=== PATIENT | male | born 1965 | race Caucasian/White ===

== ENCOUNTER 2017-06-16 10:29 | Emergency (ER) | payer BC, OTHER ==
[~2017-06-16] VITALS: Ht 172.7 cm; Wt 93.4 kg
[~2017-06-16 10:29] MED LIST: Aspirin PO; FOLIC ACID1 MG PO; PRILOSEC OTC20 MG PO
[2017-06-16] MEDS ORDERED: ASPIRIN 81 MG CHEW TAB PO ONE (10:45)
--- NOTE | 2017-06-16 11:30 | Diagnostic Imaging Report ---
EXAMINATION: CHEST 2 VIEWS 06/16/2017 10:43 AM COMPARISON: None INDICATION: Shortness of breath, congestion DISCUSSION: LINES: None. LUNGS: The lungs are well inflated and clear. No pneumonia or pulmonary edema. PLEURA: No pleural effusion or pneumothorax. HEART AND MEDIASTINUM: The cardiomediastinal silhouette is unremarkable. BONES AND SOFT TISSUES: No acute osseous lesion. The soft tissues are normal. IMPRESSION: No acute cardiopulmonary disease. Joey Blum MD Signed by: Dr. Joey Blum M.D. on 06/16/2017 11:26 AM
[2017-06-16 11:40] LABS: BILIRUBIN,URINE NEGATIVE (NEGATIVE); CLARITY,URINE CLEAR (CLEAR); COLOR,URINE YELLOW (YELLOW); KETONES,URINE NEGATIVE (NEGATIVE); LEUKOCYTE ESTERASE ,URINE NEGATIVE (NEGATIVE); NITRITE,URINE NEGATIVE (NEGATIVE); PROTEIN,URINE DIPSTICK NEGATIVE (NEGATIVE); URINE UROBILINOGEN 0.2 mg/dL (0.2 - 1)
[2017-06-16 11:58] LABS: EPITHELIAL CELLS,URINE RARE /LPF; RBC,URINE 0-5 /HPF (0-5); WBC,URINE (MAN) 0-5 /HPF (0-5)
[2017-06-16 12:08] LABS: BASOPHILS # (AUTO) 0.1 (0.0-0.1); BASOPHILS % 0.9 % (0.0-1.0); EOSINOPHILS % 0.7 % (0.0-6.0); HEMATOCRIT 41.8 % (38.2-49.6); HEMOGLOBIN 14.4 g/dL (14.0-18.0); LYMPHOCYTES # (AUTO) 0.9 (1.0-3.2); LYMPHOCYTES % 16.9 % (18.0-39.1); MEAN CORPUSCULAR HEMOGLOBIN 29.3 pg (28-32); MEAN CORPUSCULAR HGB CONC 34.4 g/dL (31-35); MEAN CORPUSCULAR VOLUME 85.1 fL (81-99); MONOCYTES # (AUTO) 0.6 (0.2-0.8); MONOCYTES % 10.2 % (4.4-11.3); NEUTROPHILS # (AUTO) 3.8 (2.1-6.9); NEUTROPHILS % 71.1 % (38.7-80.0); PLATELET COUNT 210 x10e3/uL (140-360); RED BLOOD COUNT 4.91 x10e6/uL (4.3-5.7); RED CELL DISTRIBUTION WIDTH 14.6 % (11.7-14.4)
[2017-06-16] MEDS ORDERED: SODIUM CHLORIDE 0.9% 1000ML 1,000 ML IV SCH (13:00)
[2017-06-16 13:29] LABS: ALANINE AMINOTRANSFERASE 15 IU/L (0-55); ALBUMIN 3.4 g/dL (3.5-5.0); ALBUMIN/GLOBULIN RATIO 1.6 (0.8-2.0); ALKALINE PHOSPHATASE 50 IU/L (40-150); AMYLASE 39 U/L (25-125); ANION GAP 12.6 mmol/L (8-16); BLOOD UREA NITROGEN 9 mg/dL (7-26); BUN/CREATININE RATIO 11 (6-25); CARBON DIOXIDE 18 mmol/L (22-29); CHLORIDE 112 mmol/L (98-107); CREATINE KINASE 110 IU/L (30-200); CREATININE, SERUM 0.84 mg/dL (0.72-1.25); EST GLOMERULAR FILTRATION RATE > 60 ML/MIN (60-); GLUCOSE 90 mg/dL (74-118); LIPASE 12 U/L (8-78); MAGNESIUM 1.7 MG/DL (1.3-2.1); POTASSIUM 3.6 mmol/L (3.5-5.1); SODIUM 139 mmol/L (136-145)
[2017-06-16 13:47] LABS: INR 1.22; PARTIAL THROMBOPLASTIN TIME 28.8 seconds (23.8-35.5); PROTHROMBIN TIME 14.5 seconds (11.9-14.5)
[2017-06-16] MEDS ORDERED: CALCIUM CHLORIDE 13.6 MEQ in SODIUM CHLORIDE 0.9% 100 ML 100 ML IV ONE (16:00)
== END 2017-06-16 18:36 | disposition home or self-care (01) ==
LOC: ER 10:29
DX: R06.09 Other forms of dyspnea (principal); E83.51 Hypocalcemia; F17.210 Nicotine dependence, cigarettes, uncomplicated
CPT/HCPCS: 36415; 71046; 80053; 81001; 82150; 82550; 82553; 83690; 83735; 83880; 84484; 85025; 85379; 85610; 85730; 87086; 87400; 93005; 99284; J7030

== ENCOUNTER → 2018-02-25 | Outpatient (CLI) | payer BC, OTHER ==
--- NOTE | 2018-02-25 13:35 | Diagnostic Imaging Report ---
Exam: Ultrasound extremity nonvascular History: Right inguinal pain. Lifting injury. Comparison: None Findings: Transverse and sagittal ultrasonographic imaging was obtained of the right inguinal region with rest and during all solid. Grayscale and color Doppler imaging was performed. Comparative imaging was obtained of the left inguinal region. No abnormal fluid collections are seen. No hernia is seen. Impression: No abnormal fluid collections are seen. No hernia is seen. Signed by: Dr. Vj Sosa M.D. on 02/25/2018 1:31 PM
== END ==
LOC: US 11:18
PROVIDERS: ATTEND Family Medicine
DX: R10.31 Right lower quadrant pain (principal)
CPT/HCPCS: 76882

== ENCOUNTER → 2018-07-04 | Day surgery (SDC) | payer BC ==
[2018-07-01 16:10] LABS: BASOPHILS % 0.5 % (0.0-1.0); EOSINOPHILS # (AUTO) 0.2 (0.0-0.4); EOSINOPHILS % 3.4 % (0.0-6.0); HEMATOCRIT 46.7 % (38.2-49.6); HEMOGLOBIN 15.6 g/dL (14.0-18.0); LYMPHOCYTES # (AUTO) 1.7 (1.0-3.2); LYMPHOCYTES % 28.5 % (18.0-39.1); MEAN CORPUSCULAR HEMOGLOBIN 30.2 pg (28-32); MEAN CORPUSCULAR HGB CONC 33.4 g/dL (31-35); MEAN CORPUSCULAR VOLUME 90.5 fL (81-99); MONOCYTES # (AUTO) 0.6 (0.2-0.8); MONOCYTES % 10.3 % (4.4-11.3); NEUTROPHILS # (AUTO) 3.4 (2.1-6.9); PLATELET COUNT 279 x10e3/uL (140-360); RED BLOOD COUNT 5.16 x10e6/uL (4.3-5.7); RED CELL DISTRIBUTION WIDTH 13.7 % (11.7-14.4)
[2018-07-01 16:19] LABS: INR 0.99; PROTHROMBIN TIME 13.6 seconds (11.9-14.5)
[2018-07-01 16:20] LABS: PARTIAL THROMBOPLASTIN TIME 32.4 seconds (23.8-35.5)
[2018-07-01 16:26] LABS: ALANINE AMINOTRANSFERASE 16 IU/L (0-55); ALBUMIN/GLOBULIN RATIO 1.5 (0.8-2.0); ALKALINE PHOSPHATASE 62 IU/L (40-150); ANION GAP 11.8 mmol/L (8-16); BLOOD UREA NITROGEN 18 mg/dL (7-26); BUN/CREATININE RATIO 20 (6-25); CALCIUM 8.6 mg/dL (8.4-10.2); CARBON DIOXIDE 24 mmol/L (22-29); CHLORIDE 104 mmol/L (98-107); EST GLOMERULAR FILTRATION RATE > 60 ML/MIN (60-); GLUCOSE 91 mg/dL (74-118); POTASSIUM 3.8 mmol/L (3.5-5.1); SODIUM 136 mmol/L (136-145)
[~2018-07-04] MED LIST changes: +FENTANYL CITRATE/PF 100MCG/2 ML INJ ONE; +FINASTERIDE5 MG PO; +HYOSCYAMINE SULFATE 0.5 MG/ML INJ ONE; +MIDAZOLAM HCL 5 MG/ML VIAL ONE; +PROPOFOL IV EMULSION 10 MG/ML 50 ML VIAL ONE
--- OUTSIDE RECORDS SUMMARY | 2018-07-04 13:12 | XMS REPORT ---
Author Author [facility] Address Unknown Phone Unavailable Care Team Providers Care Bead Supervisor Name Role Phone NIALL LOVE Unavailable Unavailable Le URENA Unavailable Unavailable Problems This patient has no known problems. Allergies, Adverse Reactions, Alerts This patient has no known allergies or adverse reactions. Medications This patient has no known medications. Results Test Description Test Time Test Comments Text Results Atomic Results Result Comments US EXTREMITY BERNAL NON-VAS 2018-02-25 13:29:00 [place] [address] Patient Name: BHAVIK SIMS MR #: [id number] : 1965 Age/Sex: 52/M Req #: [id number] Adm Physician: Ordered by: NIALL LOVE DO Report #: [id number] Location: Room/Bed: Procedure: [id number] US/US EXTREMITY BERNAL NON-VAS Exam Date: Exam Time: REPORT STATUS: Signed Exam: Ultrasound extremity nonvascular History: Right inguinal pain. Lifting injury. Comparison: None Findings: Transverse and sagittal ultrasonographic imaging was obtained of the right inguinal region with rest and during all solid. Grayscale and color Doppler imaging was performed. Comparative imaging was obtained of the left inguinal region. No abnormal fluid collections are seen. No hernia is seen. Impression: No abnormal fluid collections are seen. No hernia is seen. Signed by: Dr. Vj Umanzor M.D. on 02/25/2018 1:31 PM Dictated By: VJ UMANZOR MD, MD 30 Transcribed By: URMILA on 02/25/181330 COPY TO: NIALL LOVE DO CHEST 2 VIEWS [place] [address] Patient Name: BHAVIK SIMS MR #: [id number] : 1965 Age/Sex: 51/M Req #: [id number] Adm Physician: Ordered by: COSMO MERRITT NP Report #: [id number] Location: ER Room/Bed: Procedure: [id number] DX/CHEST 2 VIEWS Exam Date: 06/16/17 Exam Time: 1102 REPORT STATUS: Signed EXAMINATION: CHEST 2 VIEWS 06/16/2017 10:43 AM COMPARISON: None INDICATION: Shortness of breath, congestion DISCUSSION: LINES: None. LUNGS: The lungs are well inflated and clear. No pneumonia or pulmonary edema. PLEURA: No pleural effusion or pneumothorax. HEART AND MEDIASTINUM: The cardiomediastinal silhouette is unremarkable. BONES AND SOFT TISSUES: No acute osseous lesion. The soft tissues are normal. IMPRESSION: No acute cardiopulmonary disease. Satnam Blum MD Signed by: Dr. Satnam Blum M.D. on 06/16/2017 11:26 AM Dictated By: SATNAM BLUM MD [id number] Transcribed By: URMILA on 06/16/17 1126 COPY TO: COSMO MERRITT NP
[2018-07-04 19:21] VITALS: BP 123/72
--- NOTE | 2018-07-05 01:53 | Operative Report ---
DATE OF PROCEDURE: 07/04/2018 SURGEON: Ramakrishna Barr MD ADDENDUM: IMPRESSION: 1. Minute nodule, cervical esophagus, biopsied. 2. Distal esophagitis, mild. 3. Gastritis, biopsied. Biopsies sent to stain for Helicobacter pylori. 4. Rule out sprue. PLAN: Follow up histology. Initiate Protonix 40 mg one p.o. q.a.m. a.c. Ramakrishna Barr MD [facility] [place] /[id number] cc: Colton Elaine DO
--- NOTE | 2018-07-05 01:53 | Operative Report ---
DATE OF PROCEDURE: 07/04/2018 SURGEON: Ramakrishna Barr MD PROCEDURES: EGD with biopsies and colonoscopy with polypectomy. INDICATIONS FOR EGD: Acid reflux, bloating. INDICATIONS FOR COLONOSCOPY: Colorectal cancer screening. MEDICATIONS: The patient was done under MAC, please see anesthesiologist's note. PROCEDURE IN DETAIL: With the patient in the left lateral decubitus position, a flexible fiberoptic Olympus gastroscope was introduced into the esophagus under direct visualization without any difficulty. There was some patchy erythema noted in distal esophagus. The scope was then advanced with ease into the stomach and mucosa overlying the antrum and the body revealed some patchy erythema and jjbt-is-gorhzchy edema and biopsies were obtained and sent to stain for H pylori. The pylorus was of normal contour and shape, was intubated with ease and the scope was advanced all the way to the second portion of the duodenum. Biopsies were obtained from the proximal second portion and the duodenal bulb to rule out sprue. The scope was then withdrawn back into the stomach and retroflexed, and the mucosa overlying the fundus and the cardia appeared to be within normal limits. The scope was then straightened out and the stomach was decompressed. The scope was subsequently withdrawn. The patient tolerated the procedure well. IMPRESSION: 1. Distal esophagitis, mild. 2. Gastritis, biopsied. Biopsies sent to stain for Helicobacter pylori. 3. Rule out sprue. PLAN: Follow up histology. Initiate Protonix 40 mg one p.o. q.a.m. a.c. PROCEDURE IN DETAIL: The patient was then turned around after adequate lubrication of the anal canal, the flexible fiberoptic Olympus colonoscope was inserted into the rectum with ease and advanced all the way to the cecum. Diverticular disease was noted pretty much throughout. Prep was suboptimal with retained stools in the colon, particularly the right colon. Whatever was visualized, the mucosa overlying the cecum, ascending, transverse, other than for diverticular disease, grossly appeared to be within normal limits. 1-cm sessile polyp was snared from the proximal descending colon. Two polyps were hot biopsied from the sigmoid. The rectum grossly appeared to be within normal limits. The scope was then retroflexed into the distal rectum and small internal hemorrhoids were noted, none of which was actively bleeding. The scope was then straightened out, it was subsequently withdrawn. The patient tolerated the procedure well. IMPRESSION: 1. Suboptimal prep. 2. Robertson diverticulosis. 3. Descending colon polyp snared. 4. Sigmoid colon polyps x2, hot biopsied. 5. Internal hemorrhoids, none actively bleeding. PLAN: Follow up histology. Initiate high-fiber, low-fat diet. Initiate high-fiber supplement. The patient will need a followup colonoscopy in 1 year due to suboptimal prep to rule out synchronous colorectal neoplasm. Ramakrishna Barr MD [facility] [place]/MODL /[id number] cc: Colton Elaine DO
== END | disposition home or self-care (01) ==
LOC: OR 13:10
PROVIDERS: ATTEND Internal Medicine Gastroenterology
DX: K58.9 Irritable bowel syndrome, unspecified (principal); K63.5 Polyp of colon; K29.70 Gastritis, unspecified, without bleeding; K21.0 Gastro-esophageal reflux disease with esophagitis; K59.09 Other constipation; K57.30 Diverticulosis of large intestine without perforation or abscess without bleeding; K64.8 Other hemorrhoids; K70.30 Alcoholic cirrhosis of liver without ascites; R03.0 Elevated blood-pressure reading, without diagnosis of hypertension; Z72.0 Tobacco use; Z88.0 Allergy status to penicillin; Z01.810 Encounter for preprocedural cardiovascular examination; Z68.33 Body mass index [BMI] 33.0-33.9, adult; Z96.642 Presence of left artificial hip joint; Z80.0 Family history of malignant neoplasm of digestive organs
CPT/HCPCS: 36415; 43239; 45384; 45385; 80053; 85025; 85610; 85730; 93005; J1980; J2250; J2704

== ENCOUNTER → 2018-07-25 | Outpatient (CLI) | payer BC ==
[~2018-07-25] MED LIST changes: -FENTANYL CITRATE/PF 100MCG/2 ML INJ ONE; -HYOSCYAMINE SULFATE 0.5 MG/ML INJ ONE; -MIDAZOLAM HCL 5 MG/ML VIAL ONE; -PROPOFOL IV EMULSION 10 MG/ML 50 ML VIAL ONE
--- NOTE | 2018-07-25 15:56 | Diagnostic Imaging Report ---
HISTORY: Alcoholic cirrhosis TECHNIQUE: Selected static images from complete abdominal ultrasound provided for INTERPRETATION: COMPARISON: None. FINDINGS: Pancreas: Visualized portions are normal without mass or ductal dilatation. Liver: Measures 14.5 cm in sagittal plane. The echotexture is heterogeneous. Liver capsule is mildly lobulated. No mass in the visualized portions. Portal Vein: Measures 0.9 cm. Hepatopetal flow on spectral Doppler interrogation. Biliary Tree: Normal Gallbladder: No evidence of gallstone or gallbladder wall thickening. CBD: 0.2 cm. Right Kidney: Length is 11.1 cm. Echotexture is normal. No mass or hydronephrosis. Left Kidney: Length is 11.2 cm. Echotexture is normal. No mass or hydronephrosis. Spleen: 10.9 cm in length. No evidence for mass. Proximal Aorta: Not visualized due to bowel gas. Mid Aorta: Not visualized due to bowel gas Distal Aorta: 1.7 cm IVC: Patent No free fluid IMPRESSION: 1. Heterogeneous hepatic echotexture suggestive of hepatocellular dysfunction. Mildly lobulated hepatic contour suggestive of cirrhosis. No hepatic mass. 2. Normal portal vein. No splenomegaly or ascites. Signed by: Dr. Stephanie Moreno MD on 07/25/2018 3:53 PM
== END ==
LOC: US 12:21
PROVIDERS: ATTEND Internal Medicine Gastroenterology
DX: K70.30 Alcoholic cirrhosis of liver without ascites (principal)
CPT/HCPCS: 76700

== ENCOUNTER → 2019-03-13 | Outpatient (CLI) | payer BC ==
--- NOTE | 2019-03-13 13:48 | Diagnostic Imaging Report ---
EXAMINATION: Abdominal ultrasound. CLINICAL INDICATION: Suspected cirrhosis COMPARISON: 07/25/2018 DISCUSSION: Transverse and longitudinal images of the upper abdomen were obtained. The liver is normal in size measuring 14 centimeters in length in the right midclavicular line and shows heterogeneous echotexture with a questionably nodular external contour as previously discussed. No focal masses are seen in the liver. There is no intrahepatic biliary dilatation. The common bile duct measures 0.2 cm in caliber. The main portal vein is normal in caliber and measures 1.0 cm with normal hepatopetal flow. The gallbladder is normal in appearance without stones, wall thickening or pericholecystic fluid. The sonographic Restrepo's sign is negative. The visualized portions of the pancreatic body are unremarkable. The spleen is normal in echogenicity and size measuring 10.9 centimeters in length. The right kidney measures 11.9 centimeters in length and the left kidney measures 12 centimeters. There is normal renal cortical echogenicity and no hydronephrosis, solid mass or shadowing calculi. IVC is poorly visualized due to bowel gas. Abdominal aorta is nonaneurysmal. No free fluid is seen. IMPRESSION: Stable heterogeneous appearance of the liver parenchyma with a questionably nodular contour in keeping with the provided history of alcoholic cirrhosis. No sonographic evidence of portal hypertension. Signed by: Dr. Carlito Serna M.D. on 03/13/2019 1:45 PM
== END ==
LOC: US 12:25
PROVIDERS: ATTEND Internal Medicine Gastroenterology
DX: K70.30 Alcoholic cirrhosis of liver without ascites (principal)
CPT/HCPCS: 76700

== ENCOUNTER → 2019-04-03 | Outpatient (CLI) | payer BC ==
--- NOTE | 2019-04-03 12:45 | Diagnostic Imaging Report ---
Hepatobiliary Scan with Gallbladder Ejection Fraction Clinical information: Abdominal pain Report: Following intravenous administration of 6.6 millicuries of Tc-99m mebrofenin, dynamic images of the abdomen in the anterior projection were obtained through 32 minutes. Sincalide (CCK analog) 1.8 micrograms was administered intravenously over 30 minutes with additional imaging for determination of gallbladder ejection fraction. Perfusion to the liver is normal. Extraction of tracer from the blood pool by the liver parenchyma is normal. Tracer is seen promptly within the biliary tract. The gallbladder begins to fill by 20 minutes post-injection of tracer and fills adequately. Tracer is seen in the small bowel by 14 minutes. The gallbladder ejection fraction with administration of sincalide is 96% (normal greater than 40%). Impression: 1. Filling of the gallbladder excludes the diagnosis of acute cystic duct obstruction/acute cholecystitis. 2. Normal gallbladder ejection fraction of 96% does not support the clinical diagnosis of chronic cholecystitis/gallbladder dyskinesia. Signed by: Dr. Gypsy Charles M.D. on 04/03/2019 12:42 PM
== END ==
LOC: NM 07:25
PROVIDERS: ATTEND Internal Medicine Gastroenterology
DX: R10.9 Unspecified abdominal pain (principal)
CPT/HCPCS: 78227; A9537

== ENCOUNTER → 2019-04-10 | Outpatient (CLI) | payer BC ==
[~2019-04-10] MED LIST changes: +DIATRIZOATE MEGL/DIATRIZOA SOD 30 ML BTL PO ONE; +IOPAMIDOL 370 MG/ML 200 ML INFUS..BTL INJ ONE; +SODIUM CHLORIDE 0.9% 50ML 50 ML ONE
--- NOTE | 2019-04-10 19:00 | Diagnostic Imaging Report ---
EXAM: CT Abdomen and Pelvis WITH contrast INDICATION: Abdominal pain ^[id number] ^1803 ^ABD PAIN COMPARISON: Abdominal ultrasound, 03/13/2019 TECHNIQUE: Abdomen and pelvis were scanned utilizing a multidetector helical scanner from the lung base to the pubic symphysis after administration of IV contrast. Coronal and sagittal reformations were obtained. Routine protocol was performed. Scan was performed when during portal venous phase. Dose modulation, iterative reconstruction, and/or weight based adjustment of the mA/kV was utilized to reduce the radiation dose to as low as reasonably achievable. IV CONTRAST: 100 mL of Isovue-370 ORAL CONTRAST: 30 cc Gastrografin RADIATION DOSE: Total DLP: 664.83 mGy*cm Estimated effective dose: (DLP x 0.015 x size factor) mSv COMPLICATIONS: None FINDINGS: LINES and TUBES: None. LOWER THORAX: 4 mm density in the right lower lobe which appears to represent a partially visualized vessel rather than nodule. No focal pulmonary opacity. Heart size normal. HEPATOBILIARY: 3 mm hypodensity in the dome of the liver, too small to characterize. No other focal hepatic lesions. No biliary ductal dilation. GALLBLADDER: No radio-opaque stones or sludge. No wall thickening. SPLEEN: No splenomegaly. PANCREAS: No focal masses or ductal dilatation. ADRENALS: No adrenal nodules KIDNEYS/URETERS: Kidneys enhance symmetrically. No hydronephrosis. No cystic or solid mass lesions. No stones. GI TRACT: No abnormal distention, wall thickening, or evidence of bowel obstruction. Sigmoid diverticulosis with no CT evidence for acute diverticulitis. Moderately large volume of retained stool throughout the colon. The appendix is not conspicuously visualized but there is no inflammatory stranding seen in the right lower quadrant. PELVIC ORGANS/BLADDER: Urinary bladder unremarkable. Pelvic contents partially obscured by artifact from left hip prosthesis. No discrete abnormal mass or fluid collection the pelvis. LYMPH NODES: No dominant lymph node mass is seen in the abdomen, retroperitoneum or pelvis. VESSELS: Abdominal aorta is atherosclerotic with scattered calcified plaque. No aneurysm. IVC and portal system unremarkable. PERITONEUM / RETROPERITONEUM: No pneumoperitoneum or ascites. BONES: No acute or suspicious bony lesions. There is grade 2 spondylolisthesis of L4 and L5 with disc space narrowing. SOFT TISSUES: Superficial surrounding soft tissue unremarkable. IMPRESSION: 1. No CT evidence for acute abdominal or pelvic pathology. Staff: Remi Signed by: Dr. Casper Khalil M.D. on 04/10/2019 6:57 PM
== END ==
LOC: CT 16:10
PROVIDERS: ATTEND Internal Medicine Gastroenterology
DX: R10.9 Unspecified abdominal pain (principal)
CPT/HCPCS: 74177; Q9967

== ENCOUNTER → 2020-03-04 | Day surgery (SDC) | payer OTHER ==
[2020-03-01 15:04] LABS: BASOPHILS # (AUTO) 0.1 (0.0-0.1); BASOPHILS % 0.5 % (0.0-1.0); EOSINOPHILS # (AUTO) 0.3 (0.0-0.4); EOSINOPHILS % 3.4 % (0.0-6.0); HEMATOCRIT 46.1 % (38.2-49.6); HEMOGLOBIN 15.4 g/dL (14.0-18.0); LYMPHOCYTES # (AUTO) 2.3 (1.0-3.2); LYMPHOCYTES % 24.8 % (18.0-39.1); MEAN CORPUSCULAR HEMOGLOBIN 30.5 pg (28-32); MEAN CORPUSCULAR HGB CONC 33.4 g/dL (31-35); MEAN CORPUSCULAR VOLUME 91.3 fL (81-99); MONOCYTES # (AUTO) 0.7 (0.2-0.8); MONOCYTES % 7.2 % (4.4-11.3); NEUTROPHILS # (AUTO) 5.8 (2.1-6.9); NEUTROPHILS % 63.9 % (38.7-80.0); PLATELET COUNT 258 x10e3/uL (140-360); RED BLOOD COUNT 5.05 x10e6/uL (4.3-5.7); RED CELL DISTRIBUTION WIDTH 13.8 % (11.7-14.4)
[2020-03-01 15:20] LABS: INR 1.03
[2020-03-01 15:21] LABS: PARTIAL THROMBOPLASTIN TIME 29.5 seconds (23.8-35.5)
[2020-03-01 15:24] LABS: ALANINE AMINOTRANSFERASE 22 IU/L (0-55); ALBUMIN 4.2 g/dL (3.5-5.0); ALBUMIN/GLOBULIN RATIO 1.5 (0.8-2.0); ALKALINE PHOSPHATASE 52 IU/L (40-150); ANION GAP 13.5 mmol/L (8-16); BLOOD UREA NITROGEN 23 mg/dL (7-26); BUN/CREATININE RATIO 21 (6-25); CALCIUM 9.3 mg/dL (8.4-10.2); CARBON DIOXIDE 25 mmol/L (22-29); CHLORIDE 105 mmol/L (98-107); CREATININE, SERUM 1.08 mg/dL (0.72-1.25); EST GLOMERULAR FILTRATION RATE > 60 ML/MIN (60-); GLUCOSE 112 mg/dL (74-118); POTASSIUM 4.5 mmol/L (3.5-5.1); SODIUM 139 mmol/L (136-145)
[~2020-03-04] MED LIST changes: +ATENOLOL50 MG PO; -DIATRIZOATE MEGL/DIATRIZOA SOD 30 ML BTL PO ONE; +HYOSCYAMINE 0.125 MG TAB ONE; -IOPAMIDOL 370 MG/ML 200 ML INFUS..BTL INJ ONE; -SODIUM CHLORIDE 0.9% 50ML 50 ML ONE
[2020-03-04 11:40] VITALS: BP 108/74
--- NOTE | 2020-03-04 11:46 | Operative Report ---
DATE OF PROCEDURE: 03/04/2020 SURGEON: Ramakrishna Barr MD PROCEDURE: Colonoscopy with polypectomy and biopsies. INDICATIONS FOR COLONOSCOPY: Surveillance colonoscopy, mother with colon cancer, personal history of colon polyps, suboptimal prep on previous colonoscopy, history of intermittent loose stools. MEDICATIONS: The patient was done under MAC, please see anesthesiologist's note. PROCEDURE IN DETAIL: With the patient in left lateral decubitus position, a flexible fiberoptic Olympus colonoscope was inserted into the rectum with ease and advanced all the way to the cecum. Prep overall was suboptimal, but after extensive lavage, visualization was fair. Mucosa overlying the cecum appeared to be within normal limits. The scope was then withdrawn slowly, minute polyp was noted in the proximal ascending colon, that was hot biopsied. Diverticular disease was noted to be scattered, more prominent in the left colon primary to the sigmoid colon. The mucosa overlying the ascending, transverse, descending, sigmoid, and rectum revealed some patchy mild inflammatory changes and random biopsies were obtained. The scope was then retroflexed into the distal rectum, small internal hemorrhoids were noted, none of which was actively bleeding. The scope was then straightened out, it was subsequently withdrawn after securing an adequate stool specimen, that was sent for the appropriate stool studies. The patient tolerated the procedure well. IMPRESSION: 1. Pandiverticulosis. 2. Ascending colon polyp, hot biopsied. 3. Mild patchy colitis. 4. Proctitis, mild. 5. Internal hemorrhoids, none actively bleeding. PLAN: 1. Follow up histology. 2. Follow up stool studies. 3. Initiate Bentyl 10 mg one p.o. t.i.d. 4. IBD panel, CRP, and sedimentation rate. 5. The patient might benefit from a followup colonoscopy in 3 years. [address] Barr MD [facility] [place] /[id number] cc: Colton Elaine DO
[2020-03-04 12:04] LABS: WBC,FECAL (FECAL LACTOFERRIN) NEGATIVE (NEGATIVE)
[2020-03-04 14:57] LABS: C DIFFICILE TOXIN A&B AMP PROB NEGATIVE (NEGATIVE)
== END | disposition home or self-care (01) ==
LOC: OR 07:09
PROVIDERS: ATTEND Internal Medicine Gastroenterology
DX: Z09 Encounter for follow-up examination after completed treatment for conditions other than malignant neoplasm (principal); K63.5 Polyp of colon; K52.9 Noninfective gastroenteritis and colitis, unspecified; K62.89 Other specified diseases of anus and rectum; K57.30 Diverticulosis of large intestine without perforation or abscess without bleeding; K64.8 Other hemorrhoids; K29.60 Other gastritis without bleeding; K20.90 Esophagitis, unspecified without bleeding; K76.89 Other specified diseases of liver; I10 Essential (primary) hypertension; K21.9 Gastro-esophageal reflux disease without esophagitis; K74.60 Unspecified cirrhosis of liver; F17.210 Nicotine dependence, cigarettes, uncomplicated; Z88.1 Allergy status to other antibiotic agents; Z88.0 Allergy status to penicillin; Z88.8 Allergy status to other drugs, medicaments and biological substances; Z01.810 Encounter for preprocedural cardiovascular examination; Z01.812 Encounter for preprocedural laboratory examination; Z20.828 Contact with and (suspected) exposure to other viral communicable diseases; Z80.0 Family history of malignant neoplasm of digestive organs
CPT/HCPCS: 36415 ×2; 45380; 45384; 80053; 83630; 83993; 85025; 85610; 85651; 85730; 86140; 86256; 86671; 87045; 87177; 87328; 87493; 93005; U0002; 45378; 45385

== ENCOUNTER → 2020-06-16 | Outpatient (CLI) | payer OTHER ==
[~2020-06-16] MED LIST changes: -HYOSCYAMINE 0.125 MG TAB ONE; +IOPAMIDOL 370 MG/ML 200 ML INFUS..BTL INJ ONE; +SODIUM CHLORIDE 0.9% 50ML 50 ML ONE
[2020-06-16 16:26] LABS: BLOOD UREA NITROGEN 20 mg/dL (7-26); BUN/CREATININE RATIO 19 (6-25); CREATININE, SERUM 1.05 mg/dL (0.72-1.25); EST GLOMERULAR FILTRATION RATE > 60 ML/MIN (60-)
== END ==
LOC: CT 15:38
PROVIDERS: ATTEND Family Medicine
DX: R10.31 Right lower quadrant pain (principal)
CPT/HCPCS: 36415; 72193; 82565; 84520; Q9967

== ENCOUNTER → 2020-08-24 | Outpatient (CLI) | payer OTHER ==
[~2020-08-24] MED LIST changes: -IOPAMIDOL 370 MG/ML 200 ML INFUS..BTL INJ ONE; -SODIUM CHLORIDE 0.9% 50ML 50 ML ONE
== END ==
LOC: US 10:27
PROVIDERS: ATTEND Internal Medicine Gastroenterology
DX: K70.30 Alcoholic cirrhosis of liver without ascites (principal); R10.11 Right upper quadrant pain
CPT/HCPCS: 76705; 78227; A9537

== ENCOUNTER 2020-09-13 13:23 | Outpatient (RCR) | payer OTHER | END 2020-09-19 | LOC: PT 13:23 | PROVIDERS: ATTEND Family Medicine | DX: M54.2 Cervicalgia (principal) ==

== ENCOUNTER → 2024-04-21 | Outpatient (RCR) | payer OTHER | LOC: PT 04-10 06:32 | PROVIDERS: ATTEND Neurological Surgery | DX: M48.062 Spinal stenosis, lumbar region with neurogenic claudication (principal) ==

== ENCOUNTER 2024-04-24 12:28 | Outpatient (RCR) | payer OTHER | END 2024-05-22 | LOC: PT 12:28 | PROVIDERS: ATTEND Neurological Surgery | DX: M48.062 Spinal stenosis, lumbar region with neurogenic claudication (principal) ==

== ENCOUNTER → 2024-10-05 | Outpatient (REF) | payer OTHER ==
[~2024-10-05] MED LIST changes: +ALEVE220 MG; +DICLOFENAC PO; +IBUPROFEN200 MG PO; +LOSARTAN POTASS25 MG PO; +MAGNESIUM PO; +MULTIVITAMIN1 EACH PO; +TYLENOL EXTRA500 MG PO
== END ==
LOC: DX 07:24
PROVIDERS: ATTEND Nurse Practitioner
DX: K52.9 Noninfective gastroenteritis and colitis, unspecified (principal)
CPT/HCPCS: 74250